=== PATIENT | female | born 1960 | race Caucasian/White ===

== ENCOUNTER 2017-11-17 07:49 | Emergency (ER) | payer OTHER ==
[~2017-11-17] VITALS: Ht 157.5 cm; Wt 59.6 kg
[2017-11-17 07:53] VITALS: BP 141/67; PULSE 79; RESP 16; TEMP 98.2; O2SAT 98
--- NOTE | 2017-11-17 08:02 | PD ---
HPI Chief Complaint: Cold / Flu Symptoms Time Seen by Provider: 07:57 Travel History International Travel<30 days: No Contact w/Intl Traveler<30days: No Traveled to known affect area: No History of Present Illness HPI 57-year-old female here for evaluation of cough. The patient reports cough for the last week. Cough is productive of greenish/yellowish sputum. No hemoptysis. She states that last night she had a "nervous sensation" in her chest. No dyspnea. No history of DVT or PE. No history of cardiac disease. She is a nonsmoker. She thinks she has had a fever. Patient also reports several loose bowel movements. No vomiting. PFSH Past Medical History Hx Anticoagulant Therapy: No Diabetes: No ?: Not Social History Tobacco Use: No Substance Use: Yes (marijuana) Allergies-Medications (Allergen,Severity, Reaction): Coded Allergies: No Known Allergies (Unverified , 11/17/17) Reported Meds & Prescriptions Reported Meds & Active Scripts Active Zithromax Z-Toney (Azithromycin) 250 Mg Dspk 250 Mg PO DIRECTED 500 MG (2 tabs) day 1, then 1 tab days 2-5. Review of Systems Except as stated in HPI: all other systems reviewed are Neg Physical Exam Narrative GENERAL: Well-developed, well-nourished, comfortable, no apparent distress. SKIN: Focused skin assessment warm/dry. HEAD: Atraumatic. Normocephalic. EYES: Pupils equal and round. No scleral icterus. No injection or drainage. ENT: No nasal bleeding or discharge. Mucous membranes pink and moist. Normal pharynx. NECK: Trachea midline. No JVD. CARDIOVASCULAR: Regular rate and rhythm. RESPIRATORY: No accessory muscle use. Clear to auscultation. Breath sounds equal bilaterally. GASTROINTESTINAL: Abdomen soft, non-tender, nondistended. MUSCULOSKELETAL: No obvious deformities. No clubbing. No cyanosis. No edema. NEUROLOGICAL: Awake and alert. No obvious cranial nerve deficits. Motor grossly within normal limits. Normal speech. PSYCHIATRIC: Appropriate mood and affect; insight and judgment normal. Data Data Last Documented VS Vital Signs Date Time Temp Pulse Resp B/P (MAP) Pulse Ox O2 Delivery O2 Flow Rate FiO2 11/17/17 09:26 82 16 136/76 (96) 98 11/17/17 08:20 Room Air 11/17/17 07:53 98.2 Orders Orders Chest, Single Ap (11/17/17 ) Influenzae A/B Antigen (11/17/17 08:00) Electrocardiogram (11/17/17 08:16) Ckmb (Isoenzyme) Profile (11/17/17 08:16) Complete Blood Count With Diff (11/17/17 08:16) Comprehensive Metabolic Panel (11/17/17 08:16) D-Dimer (11/17/17 08:16) Prothrombin Time / Inr (Pt) (11/17/17 08:16) Act Partial Throm Time (Ptt) (11/17/17 08:16) Troponin I (11/17/17 08:16) Ecg Monitoring (11/17/17 08:16) Iv Access Insert/Monitor (11/17/17 08:16) Oximetry (11/17/17 08:16) Sodium Chloride 0.9% Flush (Ns Flush) (11/17/17 08:30) CKMB (11/17/17 08:35) CKMB% (11/17/17 08:35) Ed Discharge Order (11/17/17 09:24) Labs Laboratory Tests Test 11/17/17 08:35 White Blood Count 6.4 TH/MM3 Red Blood Count 3.74 MIL/MM3 Hemoglobin 11.7 GM/DL Hematocrit 35.1 % Mean Corpuscular Volume 94.0 FL Mean Corpuscular Hemoglobin 31.3 PG Mean Corpuscular Hemoglobin Concent 33.2 % Red Cell Distribution Width 12.7 % Platelet Count 181 TH/MM3 Mean Platelet Volume 9.2 FL Neutrophils (%) (Auto) 66.4 % Lymphocytes (%) (Auto) 24.2 % Monocytes (%) (Auto) 8.3 % Eosinophils (%) (Auto) 0.8 % Basophils (%) (Auto) 0.3 % Neutrophils # (Auto) 4.2 TH/MM3 Lymphocytes # (Auto) 1.6 TH/MM3 Monocytes # (Auto) 0.5 TH/MM3 Eosinophils # (Auto) 0.1 TH/MM3 Basophils # (Auto) 0.0 TH/MM3 CBC Comment DIFF FINAL Differential Comment Prothrombin Time 10.4 SEC Prothromb Time International Ratio 1.0 RATIO Activated Partial Thromboplast Time 25.0 SEC D-Dimer Quantitative (PE/DVT) 0.28 MG/L FEU Blood Urea Nitrogen 14 MG/DL Creatinine 0.61 MG/DL Random Glucose 93 MG/DL Total Protein 7.1 GM/DL Albumin 3.6 GM/DL Calcium Level 8.2 MG/DL Alkaline Phosphatase 69 U/L Aspartate Amino Transf (AST/SGOT) 30 U/L Alanine Aminotransferase (ALT/SGPT) 26 U/L Total Bilirubin 0.3 MG/DL Sodium Level 142 MEQ/L Potassium Level 3.5 MEQ/L Chloride Level 110 MEQ/L Carbon Dioxide Level 25.4 MEQ/L Anion Gap 7 MEQ/L Estimat Glomerular Filtration Rate 101 ML/MIN Total Creatine Kinase 161 U/L Creatine Kinase MB 1.6 NG/ML Troponin I LESS THAN 0.02 NG/ML MDM Medical Decision Making Medical Screen Exam Complete: Yes Emergency Medical Condition: Yes Interpretation(s) EKG: Sinus, rate 74, normal axis, RBBB, no acute ischemic abnormality. Differential Diagnosis Pneumonia, bronchitis, influenza, viral illness, ACS less likely Narrative Course Vital signs show heart rate 79, blood pressure 141/67, pulse ox 98% on room air , oral temp of 98.2F. CBC is unremarkable. CMP is unremarkable. Cardiac enzymes are negative. D-dimer is negative at 0.28. Chest x-ray: The lungs are clear. Influenza is negative. The patient was made aware of all findings per she is resting comfortably. Lung sounds are clear and equal bilaterally. She is in no distress. She likely has bronchitis and will be discharged home with a prescription for azithromycin. PMD follow-up this week. She was advised on when to return to the emergency department. She verbalizes understanding and agreement with plan. Diagnosis Primary Impression: Bronchitis Referrals: Primary Care Physician 3 days Additional Instructions: Follow-up with a primary care physician this week. Return to the emergency department for worsening symptoms or any other concerns. Scripts Azithromycin (Zithromax Z-Toney) 250 Mg Dspk 250 MG PO DIRECTED for Infection, #1 DSPK 0 Refills 500 MG (2 tabs) day 1, then 1 tab days 2-5. Prov: Julio Cesar More MD 11/17/17 Disposition: 01 DISCHARGE HOME Condition: Stable Julio Cesar More MD Nov 17, 2017 08:02
[2017-11-17 08:20] VITALS: RESP 16; O2SAT 98
[2017-11-17] MEDS ORDERED: SODIUM CHLORIDE 0.9% FLUSH 10 ML FLUSH IVF PRN (08:30)
--- NOTE | 2017-11-17 08:32 | RADRPT ---
EXAM DATE/TIME: 11/17/2017 08:16 [facility] COMPARISON: No previous studies available for comparison. INDICATIONS : Cough, chest pain, short of breath MEDICAL HISTORY : None. SURGICAL HISTORY : None. ENCOUNTER: Initial ACUITY: 1 week PAIN SCORE: 8/10 LOCATION: Bilateral chest FINDINGS: A single view of the chest demonstrates the lungs to be symmetrically aerated without evidence of mas s, infiltrate or effusion. The cardiomediastinal contours are unremarkable. Osseous structures are intact. CONCLUSION: The lungs are clear. Tank Ricks MD on November 17, 2017 at 8:30 Board Certified Radiologist. This report was verified electronically.
[2017-11-17 08:42] LABS: AUTOMATED NEUTROPHIL # 4.2 TH/MM3 (1.8-7.7); BASOPHIL % 0.3 % (0.0-2.0); EOSINOPHIL # 0.1 TH/MM3 (0-0.4); EOSINOPHIL % 0.8 % (0.0-4.0); HEMATOCRIT 35.1 % (35.0-46.0); HEMOGLOBIN 11.7 GM/DL (11.6-15.3); LYMPH % 24.2 % (9.0-44.0); LYMPHOCYTE # 1.6 TH/MM3 (1.0-4.8); MEAN CORPUSCULAR HEMOGLOBIN 31.3 PG (27.0-34.0); MEAN CORPUSCULAR HGB CONC 33.2 % (32.0-36.0); MEAN PLATELET VOLUME 9.2 FL (7.0-11.0); MONO % 8.3 % (0.0-8.0); MONOCYTE # 0.5 TH/MM3 (0-0.9); NEUT % 66.4 % (16.0-70.0); PLATELET COUNT 181 TH/MM3 (150-450); RED BLOOD COUNT 3.74 MIL/MM3 (4.00-5.30); RED CELL DISTRIBUTION WIDTH 12.7 % (11.6-17.2); WHITE BLOOD COUNT 6.4 TH/MM3 (4.0-11.0)
[2017-11-17 08:50] LABS: CHLORIDE 110 MEQ/L (98-107); SODIUM (NA) 142 MEQ/L (136-145)
[2017-11-17 08:53] LABS: ALBUMIN 3.6 GM/DL (3.4-5.0); BICARBONATE 25.4 MEQ/L (21.0-32.0); BLOOD UREA NITROGEN 14 MG/DL (7-18); CALCIUM 8.2 MG/DL (8.5-10.1); GLUCOSE,RANDOM 93 MG/DL (74-106)
[2017-11-17 08:56] LABS: ALT (GPT) 26 U/L (10-53); AST (GOT) 30 U/L (15-37); CREATININE 0.61 MG/DL (0.50-1.00); GLOMERULAR FILTRATION RATE 101 ML/MIN (>89)
[2017-11-17 08:58] LABS: TOTAL BILIRUBIN ADULT 0.3 MG/DL (0.2-1.0); TOTAL PROTEIN 7.1 GM/DL (6.4-8.2)
[2017-11-17 08:59] LABS: ALKALINE PHOSPHATASE 69 U/L (45-117)
[2017-11-17 09:01] LABS: TROPONIN I LESS THAN 0.02 NG/ML (0.02-0.05)
[2017-11-17 09:14] LABS: PROTHROMBIN TIME - PATIENT 10.4 SEC (9.8-11.6)
[2017-11-17 09:18] LABS: D-DIMER 0.28 MG/L FEU (0.00-0.50)
[2017-11-17] MEDS ORDERED: ZITHTAB PO (09:24)
[2017-11-17 09:26] VITALS: BP 136/76
--- NOTE | 2017-11-17 14:38 | EKG ---
Date Performed: 11/17/2017 Time Performed: 08:11:54 PTAGE: 57 years EKG: Sinus rhythm RIGHT BUNDLE BRANCH BLOCK ABNORMAL ECG NO PREVIOUS TRACING DOCTOR: Chandu Angulo Interpretating Date/Time 11/17/2017 14:36:55
== END 2017-11-17 09:32 | disposition home or self-care (01) ==
LOC: PHEFT 07:49
DX: J40 Bronchitis, not specified as acute or chronic (principal); F12.90 Cannabis use, unspecified, uncomplicated; I45.10 Unspecified right bundle-branch block; R94.31 Abnormal electrocardiogram [ECG] [EKG]
CPT/HCPCS: 71045; 80053; 82550; 82552; 84484; 85025; 85379; 85610; 85730; 87804; 93005; 99285